=== PATIENT | male | born 1950 | race Caucasian/White ===

== ENCOUNTER 2018-10-15 14:32 | Outpatient (RCR) | payer MEDICARE, BC ==
--- NOTE | 2018-10-15 21:30 | Consultation ---
DATE OF CONSULTATION: 10/15/2018 INFECTIOUS DISEASE CONSULTATION: This is an outpatient consult at [facility] wound care clinic. CONSULTING PHYSICIAN: Navdeep Wagner M.D. REFERRING PHYSICIAN: Heath Mckenna D.P.M. REASON FOR CONSULTATION: Adequacy of antibiotics treatment for a patient with right first toe osteomyelitis due to MRSA and immunocompromised with lung cancer. HISTORY OF PRESENT ILLNESS: The patient is a 68-year-old, male with past medical history of lung cancer, metastasized to the liver, status post chemotherapy, diabetes type 2, poorly controlled, asthma, COPD, and hypertension who was admitted to [facility] on 09/18/2018 for 1 week of fever, cough, and shortness of breath. The patient was producing large amount of yellow sputum. He was found to have right side extensive consolidation on his lung. His right big toe showed large wound, chronic. Culture was obtained from his wound and also sputum culture was obtained. Both grew MRSA. The patient was not improving clinically while he was on vancomycin and Zosyn, so he was switched later to Zyvox by Infectious Disease. Subsequently, he had gradual improvement of his pulmonary symptoms and he was discharged home on linezolid to complete 6 weeks of therapy. The patient was evaluated by arrow point attacher during his hospitalization and he was followed up today by Dr. Mckenna in the wound care clinic who had a concern about his antibiotics treatment and management for his right big toe. So, Infectious Disease consultation was requested to assess the adequacy of his antibiotics treatment and for further recommendation. The patient was seen and examined in the wound care clinic center. He was doing well. Denied any cough or shortness of breath. No fever or chills. No foot swelling or significant drainage from the right big toe wound. Seems to be improving since his discharge from the hospital. REVIEW OF SYSTEMS: A 14-point of system reviewed were all negative apart from the one I mentioned above in my History and Physical. Significant for hypertension, COPD, lung cancer metastasized to the liver, asthma, diabetes type 2, and abdominal hernia. PAST SURGICAL HISTORY: He had diagnostic laparoscopy, umbilical hernia repair, and ventral hernia repair. FAMILY HISTORY: Significant for lung cancer in the mother, but no other history. ALLERGIES: No known drug allergy. SOCIAL HISTORY: The patient currently does not use any tobacco or alcohol or drugs. Lives with at home. LABORATORY DATA: No current laboratories available. The latest I have on record on 09/29/2018 from [facility] white count of 15.77, hemoglobin of 9.6, platelet count of 241 with BUN of 10 and creatinine of 0.8. IMAGING: MRI of the right foot on 09/21/2018 showed osteomyelitis of the tuft of the hallux distal phalanx. Bone marrow signal change of the base of the hallux distal phalanx and of the head of the hallux proximal phalanx likely representing noninfectious reactive osteitis. Subcutaneous fluid collection likely an abscess along the medial aspect of the great toe. 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 Mild tenosynovitis of the flexor hallucis longus and flexor hallucis brevis tendon of the forefoot. 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 PHYSICAL EXAMINATION: VITAL SIGNS: Reviewed and stable. GENERAL: Elderly male, lying up in bed, awake, alert, oriented, not in acute distress. HEENT: Normocephalic and atraumatic. Pupils reactive to light equally. Moist oral mucosa. No exudate. NECK: Supple. No lymphadenopathy. CARDIOVASCULAR: Regular rate and rhythm. No murmur or gallop. LUNGS: Clear bilaterally. No wheezing or rhonchi. Normal breathing efforts. ABDOMEN: Soft, nontender, nondistended. Normal bowel sounds. No hepatosplenomegaly or ascites. EXTREMITIES: No edema or cyanosis. Right foot big toe wound dry clean with good granulation. No significant drainage or pus. No foul smell. Good sensation. Pulse +2 distal pedal in both lower extremities. ASSESSMENT AND RECOMMENDATION: 1. Right first osteomyelitis with tenosynovitis due to MRSA. Agree on Zyvox treatment for now with careful monitor of his lab on weekly basis including his platelet count. All side effects from Zyvox were explained to the patient and he understood and he was asked to monitor for any sign of abdominal pain or vision change and notify his primary Infectious Disease immediately. Continue local wound care as per arrow point attacher. Follow up with ID at [facility] as scheduled. Continue to monitor lab on weekly basis. 2. MRSA pneumonia. The patient is already on Zyvox, which will take care of the pneumonia at the same time. Continue vaccination as needed for pneumonia and influenza as recommended. Follow up with Pulmonary. 3. Diabetes, poorly controlled. Recommend tight glycemic control to keep blood glucose between 100 to 140. 4. Lung cancer, status post chemo. Recommend avoid chemotherapy or immunological treatment for now until his infection is cured. Thank you for letting me participate in the care of this patient. Please feel free to call with any question. Plan of care was discussed with the patient and the arrow point attacher at the bedside. Navdeep Wagner M.D. DR: KAUR JOB#: [id number] CC:
== END 2018-10-28 | disposition home or self-care (01) ==
LOC: WCC 14:32
DX: E11.621 Type 2 diabetes mellitus with foot ulcer (principal); E11.9 Type 2 diabetes mellitus without complications; I10 Essential (primary) hypertension; Z85.118 Personal history of other malignant neoplasm of bronchus and lung; Z79.82 Long term (current) use of aspirin
CPT/HCPCS: 11042

== ENCOUNTER 2018-11-12 13:35 | Outpatient (RCR) | payer MEDICARE, MEDICAID | END 2018-11-28 | disposition home or self-care (01) | LOC: WCC 13:35 | DX: E11.621 Type 2 diabetes mellitus with foot ulcer (principal); E11.49 Type 2 diabetes mellitus with other diabetic neurological complication; M86.171 Other acute osteomyelitis, right ankle and foot; C34.90 Malignant neoplasm of unspecified part of unspecified bronchus or lung; Z86.14 Personal history of Methicillin resistant Staphylococcus aureus infection; Z85.118 Personal history of other malignant neoplasm of bronchus and lung; Z79.82 Long term (current) use of aspirin | CPT/HCPCS: 11042; C5275; Q4102 ==

== ENCOUNTER 2018-12-03 13:29 | Outpatient (RCR) | payer MEDICARE, BC | END 2018-12-26 | disposition home or self-care (01) | LOC: WCC 13:29 | DX: M86.171 Other acute osteomyelitis, right ankle and foot (principal); E11.49 Type 2 diabetes mellitus with other diabetic neurological complication; E11.621 Type 2 diabetes mellitus with foot ulcer; C34.90 Malignant neoplasm of unspecified part of unspecified bronchus or lung; I10 Essential (primary) hypertension; Z85.118 Personal history of other malignant neoplasm of bronchus and lung; Z79.82 Long term (current) use of aspirin | CPT/HCPCS: 11042; 11055; 11721; G0463 ==

== ENCOUNTER 2019-01-07 13:37 | Outpatient (RCR) | payer MEDICARE, BC | END 2019-01-26 | disposition home or self-care (01) | LOC: WCC 13:37 | DX: E11.49 Type 2 diabetes mellitus with other diabetic neurological complication (principal); E11.621 Type 2 diabetes mellitus with foot ulcer; M86.171 Other acute osteomyelitis, right ankle and foot; C34.90 Malignant neoplasm of unspecified part of unspecified bronchus or lung; Z79.82 Long term (current) use of aspirin | CPT/HCPCS: 11042 ==

== ENCOUNTER 2019-01-28 14:13 | Outpatient (RCR) | payer MEDICARE, BC | END 2019-02-25 | disposition home or self-care (01) | LOC: WCC 14:13 | DX: E11.49 Type 2 diabetes mellitus with other diabetic neurological complication (principal); E11.621 Type 2 diabetes mellitus with foot ulcer; M86.171 Other acute osteomyelitis, right ankle and foot; C34.90 Malignant neoplasm of unspecified part of unspecified bronchus or lung; Z87.891 Personal history of nicotine dependence; I10 Essential (primary) hypertension; Z79.899 Other long term (current) drug therapy; Z79.82 Long term (current) use of aspirin | CPT/HCPCS: 11042; 97597; G0463 ==